=== PATIENT | female | born 1980 | race Caucasian/White ===

== ENCOUNTER 2018-05-23 20:19 | Emergency (ER) | payer OTHER ==
[2018-05-23 21:35] VITALS: BP 114/76
--- NOTE | 2018-05-23 21:36 | Emergency Department Report ---
Blank Doc - Documentation Documentation: This is a 37-year-old female that presents with left wrist pain s/p trip and f all. Denies any other trauma or injuries. This initial assessment diagnostic orders/clinical plan/treatment(s) is/are subject to change based on patient's health status, clinical progression and re- assessment by fellow clinical providers in the ED. Further treatment and workup at subsequent clinical providers discretion. Patient/guardians urged not to elope from ED s their condition may be serious if not clinically assessed and managed. Initial orders include: 1-Patient sent to [facility] for further evaluation and treatment 2- xray
[2018-05-23] MEDS ORDERED: PERCOCET 5/325 PO ONE (22:13)
[2018-05-23] MEDS ORDERED: IBUPROFEN PO ONE (22:13)
--- NOTE | 2018-05-23 22:43 | XRay Report ---
FINAL REPORT PROCEDURE: XR WRIST 2 VIEW LEFT TECHNIQUE: LEFT wrist radiographs, AP and lateral views. HISTORY: left wrist pain COMPARISON: No prior studies are available for comparison. FINDINGS: Fracture(s)and/or Dislocation(s): Acute comminuted fractures are noted involving the distal metaphysi s of radius and ulna. The radial fragment maximal displacement is about 1 centimeter posteriorly. Alignment: Radiocarpal alignment is maintained.. Joint space(s): Normal. Soft tissues: No radiopaque foreign bodies. Bone mineralization: Normal. Foreign bodies: None. IMPRESSION: Acute comminuted fractures involving distal ends of radius and ulna
--- NOTE | 2018-05-23 23:08 | Emergency Department Report ---
Upper Extremity - HPI Chief Complaint: Extremity Injury, Upper Stated Complaint: FALL/WRIST INJURY Time Seen by Provider: 05/23/18 21:34 Upper Extremity: Left Wrist Occurred When: Today Mechanism: Fall Severity: severe Symptoms: Yes Pain with Movement, Yes Limited Range of Movement, Yes Swelling, No Numbness, No Weakness Other History: 37-year-old female comes in the emergency room left wrist injury swollen and tenderness. Patient reports that she had fallen while in the kitchen and braced herself with her hand when she injured her wrists. Patient reports that the pain is 10 out of 10. She reports that she is at past medical history of cholesterolemia thyroid issues. Last menstrual. Was 05/20/2018. Patient has no other injuries no other complaints. Patient denies any allergies to any medications. Spoke with make up operator [id number]. ED Review of Systems ROS: Stated complaint: FALL/WRIST INJURY Other details as noted in HPI Comment: All other systems reviewed and negative Musculoskeletal: joint swelling (left wrist), arthralgia (left wrist) ED Past Medical Hx - Past Medical History Previous Medical History?: Yes Additional medical history: THYROID DISEASE - Surgical History Past Surgical History?: No - Social History Smoking Status: Never Smoker Substance Use Type: None - Medications Home Medications: Home Medications Medication Instructions Recorded Confirmed Last Taken Type Ibuprofen [Motrin 600 MG tab] 600 mg PO Q8H PRN #30 tablet 05/23/18 Unknown Rx Oxycodone HCl/Acetaminophen 1 each PO Q6HR PRN #12 tablet 05/23/18 Unknown Rx [Percocet 7.5/325 mg] Upper Extremity Exam - Exam General: Vital signs noted. No distress. Alert and acting appropriately. Head and Torso: No HEENT Abnormality, No Neck Tenderness, No Chest/Lungs Abnormality, No Abdominal Tenderness, No Back Tenderness Shoulder Exam: Yes Normal Range of Motion in Shoulder, No Shoulder Tenderness, No Clavicle Tenderness, No Shoulder Deformity, No AC Joint Tenderness Arm Exam: No Arm/Humerus Tenderness, No Arm Deformity Elbow: No Elbow Tenderness, No Normal Range of Motion in Elbow, No Elbow Deformity Forearm: Yes Pain with Pronation, Yes Pain with Supination Wrist: Yes Wrist Tenderness, Yes Wrist Deformity, Yes Pain with Axial Thumb Compression, No Normal ROM in Wrist Hand: No Hand Tenderness, No Hand Deformity, No Digit Tenderness, No Normal ROM in Digit(s), No Digit(s) Deformity, No Tendon Dysfunction CMS Exam: Yes Normal Distal Pulses, Yes Normal Capillary Refill, Yes Normal Distal Sensation, No Broken Skin ED Course Vital Signs 05/23/18 21:30 Temperature 98 F Pulse Rate 67 Respiratory 18 Rate Blood Pressure 114/76 O2 Sat by Pulse 99 Oximetry - Reevaluation(s) Reevaluation #1: 05/23/18 23:[address] Andrade orthopedic surgeon he recommends patient to follow up tomorrow in his clinic and appears that she may have to have surgery. I informed patient and the plan. They had many questions were answered. Patient will be placed in a splint sugar tong that's recommended by Dr. Andrade. Patient will be discharged home on Percocet and ibuprofen. ED Medical Decision Making - Medical Decision Making Patient has been evaluated by this provider in [facility]. X-ray of left wrist shows a comminuted distal fracture of the radius and ulnar. Signed patient was given Percocet and ibuprofen for pain management. Spoke to Dr. Andrade orthopedic surgeon he recommends patient to follow up tomorrow in his clinic and appears that she may have to have surgery. I informed patient and the plan. They had many questions were answered. Patient will be placed in a splint sugar tong that's recommended by Dr. Andrade. Patient will be discharged home on Percocet and ibuprofen. Critical Care Time: Yes Critical care time in (mins) excluding proc time.: 30 Critical care attestation.: If time is entered above; I have spent that time in minutes in the direct care of this critically ill patient, excluding procedure time. ED Disposition Clinical Impression: Comminuted fracture Fracture of radius and ulna, distal Qualifiers: Encounter type: initial encounter Fracture type: closed Laterality: right Qualified Code(s): S52.501A - Unspecified fracture of the lower end of right radius, initial encounter for closed fracture; S52.601A - Unspecified fracture of lower end of right ulna, initial encounter for closed fracture Fall Qualifiers: Encounter type: initial encounter Qualified Code(s): W19.XXXA - Unspecified fall, initial encounter Injury of left wrist Qualifiers: Encounter type: initial encounter Qualified Code(s): S69.92XA - Unspecified injury of left wrist, hand and finger(s), initial encounter Disposition: DC-01 TO HOME OR SELFCARE Is pt being admited?: No Does the pt Need Aspirin: No Condition: Stable Instructions: Oxycodone/Acetaminophen (By mouth), Wrist Fracture in Adults (ED) , Fall Prevention (ED) Additional Instructions: Please take pain medication only as needed. Please do not operate heavy machinery while taking Percocet. Please increase her water intake while taking ibuprofen. Please follow up with orthopedic provider tomorrow 9:[address] Andrade's clinic. Please place ice on her left wrist and elevate. Prescriptions: Ibuprofen [Motrin 600 MG tab] 600 mg PO Q8H PRN #30 tablet PRN Reason: Pain Oxycodone HCl/Acetaminophen [Percocet 7.5/325 mg] 1 each PO Q6HR PRN #12 tablet PRN Reason: Pain Referrals: TONY ANDRADE MD [Staff Physician] - 3-5 Days Forms: Work/School Release Form(ED), Accompanied Note
== END 2018-05-23 23:25 | disposition home or self-care (01) ==
LOC: ED 20:19
DX: S52.602A Unspecified fracture of lower end of left ulna, initial encounter for closed fracture (principal); S52.502A Unspecified fracture of the lower end of left radius, initial encounter for closed fracture; W19.XXXA Unspecified fall, initial encounter; Y93.89 Activity, other specified; Y92.89 Other specified places as the place of occurrence of the external cause; Y99.8 Other external cause status

== ENCOUNTER 2018-05-24 01:06 | Emergency (ER) | payer OTHER ==
[2018-05-24] MEDS ORDERED: ZOFRAN IM ONE (01:07)
[2018-05-24] MEDS ORDERED: MORPHINE IM ONE (01:07)
[2018-05-24] MEDS ORDERED: ZOFRAN ONE (01:25)
[2018-05-24] MEDS ORDERED: MORPHINE ONE (01:26)
[2018-05-24] MEDS ORDERED: XYLOCAINE 2% INFILTRATI ONE ×2 (01:35→01:44)
[2018-05-24] MEDS ORDERED: XYLOCAINE 1% 20 mL INFILTRATI ONE (01:43)
--- NOTE | 2018-05-24 02:08 | Emergency Department Report ---
ED Extremity Problem HPI - General Chief complaint: Extremity Injury, Upper Stated complaint: WRIST PAIN Time Seen by Provider: 05/24/18 01:33 Source: patient, family Mode of arrival: Ambulatory Limitations: Language Barrier - History of Present Illness Initial comments: Patient is a 37-year-old Romans[place] female who suffered a left distal radius and ulnar fracture but was sent home and was not reduced was returned because of increased pain. I did not see this patient before leaving on her previous visit. I suggested by Dr. Andrade that the patient return to have reduction. Patient has an appointment to see Dr. Andrade earlier if his morning. Patient states pain is aching throbbing pain and is a 10 out of 10 in severity. Severity scale (0 -10): 6 - Related Data Previous Rx's Medication Instructions Recorded Last Taken Type Ibuprofen [Motrin 600 MG tab] 600 mg PO Q8H PRN #30 tablet 05/23/18 Unknown Rx Oxycodone HCl/Acetaminophen 1 each PO Q6HR PRN #12 tablet 05/23/18 Unknown Rx [Percocet 7.5/325 mg] Allergies Allergy/AdvReac Type Severity Reaction Status Date / Time No Known Allergies Allergy Unverified 05/23/18 21:35 ED Review of Systems ROS: Stated complaint: WRIST PAIN Other details as noted in HPI Comment: All other systems reviewed and negative ED Past Medical Hx - Past Medical History Additional medical history: THYROID DISEASE - Social History Smoking Status: Never Smoker Substance Use Type: None - Medications Home Medications: Home Medications Medication Instructions Recorded Confirmed Last Taken Type Ibuprofen [Motrin 600 MG tab] 600 mg PO Q8H PRN #30 tablet 05/23/18 Unknown Rx Oxycodone HCl/Acetaminophen 1 each PO Q6HR PRN #12 tablet 05/23/18 Unknown Rx [Percocet 7.5/325 mg] ED Physical Exam - General Limitations: Language Barrier General appearance: in distress - Head Head exam: Present: atraumatic, normocephalic - Extremities Exam Extremities exam: Present: tenderness, joint swelling (there is obvious swelling and deformity to the left wrist. This suggestive of a Colles fracture) - Orthopedic Fracture Reduction Fracture #1 Consent Obtained: verbal consent Time Out Performed: Yes Side: left Fracture Reduction Location: radius, ulna Analgesia: hematoma block (with 2% lidocaine. There was good flash of blood before injection. Patient had good anesthesia and tolerated procedure well) Technique: direct manipulation Post Reduction X-rays Demonstrate: anatomical reduction Post-Reduction Neuro Exam: intact Post-Reduction Vascular Exam: intact Splint Applied: Yes (Sugar tong splint was applied by me) Patient Tolerated Procedure: well ED Medical Decision Making - Medical Decision Making Patient achieved anatomical alignment. Patient will be follow-up with Dr. Andrade. Patient's pain has been reduced. Critical care attestation.: If time is entered above; I have spent that time in minutes in the direct care of this critically ill patient, excluding procedure time. ED Disposition Clinical Impression: Fracture of radius and ulna, distal Qualifiers: Encounter type: initial encounter Fracture type: closed Laterality: left Qualified Code(s): S52.502A - Unspecified fracture of the lower end of left radius, initial encounter for closed fracture; S52.602A - Unspecified fracture of lower end of left ulna, initial encounter for closed fracture Disposition: DC-01 TO HOME OR SELFCARE Is pt being admited?: No Does the pt Need Aspirin: No Condition: Stable
== END 2018-05-24 02:10 | disposition home or self-care (01) ==
LOC: ED 01:06
DX: S52.502A Unspecified fracture of the lower end of left radius, initial encounter for closed fracture (principal); S52.602A Unspecified fracture of lower end of left ulna, initial encounter for closed fracture; X58.XXXA Exposure to other specified factors, initial encounter; Y93.89 Activity, other specified; Y92.89 Other specified places as the place of occurrence of the external cause; Y99.8 Other external cause status
CPT/HCPCS: 25605; 96372; 99282; J2270; J2405